=== PATIENT | male | born 1955 | race Two or more races ===

== ENCOUNTER 2025-04-28 06:00 | Day surgery (SDC) | payer OTHER ==
[2025-04-20 09:24] VITALS: BP 150/72
[2025-04-20 09:48] LABS: URINE APPEARANCE Clear; URINE BILIRRUBIN Negative (NEGATIVE); URINE BLOOD NHT; URINE COLOR Yellow; URINE GLUCOSE Negative (NEGATIVE); URINE KETONE Negative (NEGATIVE); URINE LEUKOCYTE Negative; URINE NITRATE Negative; URINE PROTEIN Negative (NEGATIVE); URINE UROBILINOGEN 0.2 E.U./dl
[2025-04-20 09:50] LABS: BASO % 1.1 % (0.1-1.2); EOS # 0.04 (0.04-0.54); EOS % 1.1 % (0.7-7.0); LYMPH # 0.99 (1.18-3.74); LYMPH % 26.1 % (19.3-53.1); MEAN PLATELET VOLUME 9.80 fl (9.4-12.4); MONO # 0.33 (0.24-0.82); MONO % 8.7 % (4.7-12.5); NEUT # 2.38 (1.56-6.13); NEUT % 62.7 % (34.0-71.1); RED CELL DISTRIBUTION WIDTH 13.4 % (11.6-14.4)
[2025-04-20 10:06] LABS: URINE BACTERIA SOME; URINE EPITHELIAL CELLS 0-4 /HPF; URINE RBC 0-3 /HPF; URINE WBC 0-2 /hpf
[2025-04-20 10:18] LABS: INR 1.07
[2025-04-20 10:47] LABS: ALT/SGPT 34.0 U/L (12-78); AST/SGOT 23.0 U/L (15-37); BILIRUBIN TOTAL 0.6 mg/dL (0.3-1.2); BUN CREA RATIO 21.0 (7.0-25.0); CREATININE SERUM 0.84 mg/dL (0.70-1.30); GFR 90.87; GLOBULINA 3.0 G/DL (2.4-3.5); GLUCOSE FASTING 93.0 mg/dL (65-100); OSMOLALITY SERUM 287.0 MOSM/KG (275-295)
[~2025-04-28] VITALS: Ht 185.4 cm; Wt 61.2 kg
[~2025-04-28 06:00] MED LIST: ACIDOPHILUS1 EAC3; LAMOTRIGINE; MEMANTINE HCL5 MG
[2025-04-28] MEDS ORDERED: DEXAMETHASONE SODIUM PHOSPHATE 4 MG/ML VIAL ONE (06:53)
== END 2025-04-28 12:00 | disposition home or self-care (01) ==
LOC: SURH 06:00 → CIR.AMB 06:00 → O/R 06:00 → SURH 07:00 → EDSTATUS 07:15 → SURH 07:15 → O/R 09:28 → CIR.AMB 12:00
PROVIDERS: ATTEND Surgery
DX: C73 Malignant neoplasm of thyroid gland (principal)